=== PATIENT | male | born 1985 | race Caucasian/White ===

== ENCOUNTER 2016-10-08 21:31 | Inpatient (IN) ==
[2016-10-08] MEDS ORDERED: methylPREDNISolone SOD SUC 125 MG/2 ML VIAL IV STA (21:38)
[2016-10-08] MEDS ORDERED: CHARCOAL AQUEOUS 25 GM/120 ML BOTTLE NG STA (21:38)
[2016-10-08] MEDS ORDERED: SODIUM CHLORIDE 0.9% 2,000 ML IV STA (21:38)
[2016-10-08] MEDS ORDERED: AMPICILLIN/SULBACTAM 3,000 MG in SODIUM CHLORIDE 0.9% 100 ML IV STA (21:44)
--- NOTE | 2016-10-08 21:48 | Emergency Department Note ---
Arrival - Arrival Chief Complaint: Overdose Stated Complaint: overdose ED Nursing Triage Note: PT FOUND UNRESPONSIVE PER [facility]. PT ARRIVED AT ROOM 2 INTUBATED PER [facility] Mode of Arrival: Stretcher Limitations: No Limitations Source: Patient Time Seen by Provider: 10/08/16 21:38 - History of Present Illness HPI Narrative: This 31-year-old white male presents intubated post respiratory semi-arrest in the field by EMS where the patient was found in his home on the floor face down respiring about 6 times per minute. At no time per EMS did the patient have any cardiac disturbance. The patient per the family is a well known drug abuser and purportedly the patient took an unknown volume of hydrocodone and Xanax topped off with alcohol sometime between 5 and 6:00 pm, 4-5 hours ago. He was last seen alert around 6:00 but at that time was already staggering and obviously under the influence of drugs. Onset (ago): hour(s) (Patient presents 4 hours post onset of symptoms) Allergies/Adverse Reactions: Allergies Allergy/AdvReac Type Severity Reaction Status Date / Time meloxicam Allergy RASH Verified 03/16/16 07:16 risperidone [From Risperdal] AdvReac Unknown/Unable Verified 03/16/16 07:16 to obtain Home Medications: Home Medications Medication Instructions Recorded Confirmed Type Gabapentin 300 mg PO BID 01/27/16 03/16/16 History Mirtazapine 15 mg PO BEDTIME 01/27/16 03/16/16 History clonazePAM [Clonazepam] 2 mg PO BID 01/27/16 03/16/16 History HYDROcodone/ACETAMIN 7.5-325 1 - 2 tablet PO Q4H #30 tablet 03/17/16 Rx [[place] 7.5-325] Review of System - Review of System ROS unobtainable: due to endotracheal tube, due to mental status Medical,Surgical,& Family Hx - Medical History Psychological: History of: Anxiety Disorders - Surgical History Abdominal Surgeries: Surgical HX of: Appendectomy - Family History Family History: Reports;: Family Diabetes (Father), Family Heart Disease ( Parental G'father), Family Hypertension (Father) - Social History Smoking Status: Current every day smoker Frequency of Alcohol Use: Unknown Type of Drug Use: Prescription Drug Abuse Exam Physical Examination: GENERAL: Well developed, well nourished intubated white male in no acute distress. HEENT: Normocephalic. No trauma. Moist mucous membranes. EOMI. PERRLA. Pinpoint pupils ENT NML ET tube at 21 NECK: Supple. No adenopathy. CARDIAC: Regular. No murmurs. CHEST: Intubated with scattered expiratory rhonchi. ABDOMEN: Soft. Nontender. Active bowel sounds. EXTREMITIES: No trauma. Normal ROM. No pedal edema. SKIN: No diaphoresis. No rash. No obvious track davila. NEURO: Sedated Vital Signs: Vital Signs Pulse Rate 92 H 10/08/16 21:34 Respiratory Rate 16 10/08/16 21:34 Blood Pressure 113/71 10/08/16 21:34 Course - Reevaluation(s) Reevaluation #1: Discussed with family the obvious need for hospitalization - Consultations Consultation #1: Discussed case with the hospitalist service who will admit for further evaluation treatment. Results - Labs CBC & BMP: 10/08/16 21:43 10/08/16 21:43 Labs: I reviewed the laboratory noted the elevated white blood cell count as well as the negative cardiac's. Likewise noted was the UDS which was positive for not only opiates and benzos but likewise crystal meth. - Impressions EKG: Sinus rhythm at 85, normal MS interval and QRS duration. Normal ST segments. Normal EKG. - Diagnostic Findings Procedure: Chest x-ray: image reviewed by me, report reviewed by me ( Cardiomegaly with bilateral basilar platelike atelectasis. ET tube in satisfactory position), CT: image reviewed by me, report reviewed by me (No acute injury but pansinusitis noted with air-fluid levels left maxillary sinus) Disposition Clinical Impression: Polysubstance overdose, Chronic substance abuse, Presumed aspiration pneumonia Case discussed with: patient's family Condition: Critical Time of Disposition: 23:10
[2016-10-08 21:58] LABS: Basophils # 0.1 10*3/uL (0.0-0.2); Basophils % 0.4 % (0.0-0.8); Eosinophils # 0.1 10*3/uL (0.0-0.87); Eosinophils % 0.2 % (0.00-10.9); Hematocrit 50.4 VOL% (42.0-52.0); Hemoglobin 16.9 GM/DL (14.0-18.0); Immature Granulocytes % 0.6 %; Immature Granulocytes Absolute 0.16 #; Lymphocytes # 1.2 10*3/uL (1.4-4.0); Lymphocytes % 4.4 % (21.2-54.2); Mean Corpuscular HGB Conc 33.5 GM/DL (32-36); Mean Corpuscular Hemoglobin 31 PG (27-34); Mean Corpuscular Volume 90.8 FL (87-102); Mean Platelet Volume 9.7 FL (9.6-12.0); Monocytes # 1.2 10*3/uL (0.11-0.8); Monocytes % 4.5 % (1.7-12.7); Neutrophils # 24.7 10*3/uL (1.4-7.4); Neutrophils % 89.9 % (38.7-73.9); Platelet Count 284 T/CUMM (130-400); Red Blood Count 5.55 MC/CUMM (3.8-5.5); Red Cell Distribution Width 13.6 % (9.3-17.3); White Blood Count 27.5 T/CUMM (4-12)
--- NOTE | 2016-10-08 22:05 | CT Report ---
CT of the head without contrast. Indication: Mental status changes. Comparison: December 28, 2010. The ventricles are normal in size and configuration. There is no mass effect, midline shift, or area of hemorrhage. No cortical infarcts are seen. There is thick fluid in the nasopharynx. The there is an air-fluid level in the left maxillary sinus. There is mucosal thickening in both maxillary sinuses, both sphenoid sinuses, both ethmoid sinuses, and both frontoethmoidal recess areas. The calvarium is intact. The mastoid air cells are clear. Impression: Paranasal sinus disease. No acute intracranial process is seen. The CT exam was performed using one or more of the following dose reduction techniques: Automated exposure control, adjustment of the mA and/or kV according to patient size, or use of iterative reconstruction technique. PROCEDURE INTERPRETED AT [facility] DEPARTMENT OF RADIOLOGY Final Report Signed by: Dr. Jesusita Al
[2016-10-08 22:06] LABS: INR 1.1; PT Patient Result 11.5 SECS
[2016-10-08 22:12] LABS: ABG Base Excess -0.9 MMOL/L (-2.5-2.5); ABG HCO3 28.2 MMOL/L (20-26); ABG Oxygen Saturation 98.8 % (95-100); ABG PCO2 64.8 MM HG (35-48); ABG PH 7.256 (7.35-7.45); ABG PO2 159.8 MM HG (80-95); ABG TCO2 30.2 MMOL/L (23-27); Allen Test Positive; Pt O2 Delivery Device Ventilator
[2016-10-08 22:14] LABS: Acetaminophen < 2.0 UG/ML (10-30); Salicylate 3.1 MG/DL (2.8-20)
[2016-10-08 22:17] LABS: Barbiturates Screen,Urine Negative (Negative); Benzodiazepines Screen,Urine Positive (Negative); Cannabinoid Screen,Urine Negative (Negative); Opiate Screen,Urine Positive (Negative); Phencyclidine Screen,Urine Negative (Negative)
[2016-10-08 22:18] LABS: Apearance,Urine Slightly Hazy (Clear); Bilirubin,Urine Negative (Negative); Blood, Urine Negative (Negative); Glucose,Urine (UA) Negative (Negative); Granular Casts,Urine 5 /LPF (0-1); Hyaline Casts,Urine 3 /LPF (0-3); Ketones,Urine Negative (Negative); Mucus,Urine Occasional /LPF (Occasional); Nitrite,Urine Negative (Negative); Protein,Urine 30 MG/DL; RBC,Urine 2 /HPF (0-4); Sperm,Urine Moderate /HPF (Negative); Squamous Epithelial Cell,Urine Occasional /HPF (0-10); Urine Color Yellow (Yellow); Urine Specific Gravity 1.018 (1.001-1.035); Urine Urobilinogen < 2.0 EU/DL (0.2-1.0); WBC,Urine 1 /HPF (0-6)
[2016-10-08] MEDS ORDERED: AMPICILLIN/SULBACTAM 3,000 MG VIAL ONE (22:18)
[2016-10-08] MEDS ORDERED: methylPREDNISolone SOD SUC 125 MG/2 ML VIAL ONE (22:18)
[2016-10-08 22:19] LABS: Troponin I Only < 0.015 NG/ML (0.00-0.045)
--- NOTE | 2016-10-08 22:23 | XRay Report ---
Portable chest. Indication: Drug overdose. Comparison: March 16, 2016. The heart is enlarged, significantly increased from the previous exam. There are patchy areas of platelike atelectasis in each lung base. The pulmonary vasculature is normal. No pneumothorax or pleural effusion. Surgical clips in the right upper quadrant. Distal tip of the nasogastric tube projects at the antrum of the stomach. Distal tip of the endotracheal tube is at T3-T4, well above the pati. Healed rib fractures on the left. Impression: Significant interval increase in heart size. Development of platelike areas of atelectasis in each base. Satisfactory tube placement. PROCEDURE INTERPRETED AT [facility] DEPARTMENT OF RADIOLOGY Final Report Signed by: Dr. Jesusita Al
[2016-10-08 22:27] LABS: Band Neutrophils 2 % (0-10); Lymphocytes 1 % (20-55); Segmented Neutrophils 92 % (50-85); Total Cells Counted 100
[2016-10-08 22:47] LABS: Albumin 4.2 G/DL (3.4-5.0); Bilirubin,Total 0.4 MG/DL (0.2-1.0); Calcium 8.8 MG/DL (8.5-10.1); Osmolality,Calculated 286.8 MOS/KG (273-304); Potassium 3.6 MMOL/L (3.5-5.1); Total Protein 7.7 G/DL (6.4-8.3)
--- NOTE | 2016-10-08 23:38 | Hospitalist History & Physical ---
Assessment and Plan (1) Acute hypercapnic respiratory failure Status: Acute Assessment and plan: Secondary to drug overdose, uncertain whether or not this was a suicide attempt Continue mechanical ventilation through the night, hold sedation and attempt to awaken and extubate in the morning Current Visit: Yes (2) Drug overdose, multiple drugs Status: Acute Current Visit: Yes (3) Drug overdose, multiple drugs Status: Acute Assessment and plan: Agents involved included Xanax, hydrocodone, methamphetamine Caused respiratory failure with bradypnea, hypercapnia Continue IV hydration and mechanical ventilation until substances clear from system Current Visit: Yes Qualifiers: Encounter type: initial encounter (4) Aspiration pneumonitis Status: Acute Assessment and plan: Patient was lying in vomitus when he was found, he has significant leukocytosis , and bibasilar atelectasis on chest x-ray Was given steroids and Unasyn once in the emergency department to cover for possible aspiration pneumonia We will hold further antibiotics at this time unless patient develops fever, failure to wean vent, other indications that this is not a transient aspiration pneumonitis alone Current Visit: Yes (5) Acute encephalopathy Status: Acute Assessment and plan: Secondary to drug overdose with multiple agents, see above Current Visit: Yes History of Present Illness Chief complaint: Drug overdose History of present illness: Mr. Patel is a 31 year old male with history of cholecystectomy, polysubstance abuse that was brought in after family found him down on the floor of their home. The patient was altered secondary to drug overdose and intubated at the time of my exam and he was unable to provide any history. History was taken from discussion with emergency room providers and family including mother present at bedside. Patient has a history of drug dependence problems and was recently in drug rehab. Family believe that he may have been clean for a few months. He was in his usual state of health when seen earlier today although he did not sleep very well the night before. He was reportedly last seen normal at a convenience store around 6:30 PM. He was found unresponsive lying face down in vomit and breathing slowly at around 8 PM. He was intubated in the field. There was Xanax and hydrocodone found near him. Urine drug screen in the emergency department was consistent with the history with the one addition of methamphetamines also noted. He has a history of prior drug overdoses requiring intubation. Per family he does not have a history of suicidal ideation and they do not believe this was intentional self- harm. Home Medications Medication Instructions Recorded Confirmed Type Gabapentin 300 mg PO BID 01/27/16 03/16/16 History Mirtazapine 15 mg PO BEDTIME 01/27/16 03/16/16 History clonazePAM [Clonazepam] 2 mg PO BID 01/27/16 03/16/16 History HYDROcodone/ACETAMIN 7.5-325 1 - 2 tablet PO Q4H #30 tablet 03/17/16 Rx [[place] 7.5-325] Allergies Allergy/AdvReac Type Severity Reaction Status Date / Time meloxicam Allergy RASH Verified 03/16/16 07:16 risperidone [From Risperdal] AdvReac Unknown/Unable Verified 03/16/16 07:16 to obtain Medical,Surgical,& Family Hx - Medical History Psychological: History of: Anxiety Disorders - Surgical History Abdominal Surgeries: Surgical HX of: Cholecystectomy - Family History Family History: Reports;: Family Diabetes (Father), Family Heart Disease ( Parental G'father), Family Hypertension (Father) - Social History Smoking Status: Current every day smoker Frequency of Alcohol Use: Unknown Type of Drug Use: Prescription Drug Abuse ROS unobtainable: due to endotracheal tube, due to mental status Exam - Constitutional General appearance: normal weight, disheveled, other (Young white male, intubated) Exam: - Eye Eye exam: Present: EOMI. Absent: conjunctival injection, scleral icterus Pupils: Present: SRAVANTHI - ENT ENT exam: Present: normal external ear exam, normal oropharynx - Expanded ENT Exam Mouth exam: Present: moist, ET tube in place - Neck Neck exam: Present: normal inspection. Absent: lymphadenopathy, thyromegaly - Respiratory Respiratory exam: Present: clear to auscultation bilaterally. Absent: accessory muscle use, rales, rhonchi, wheezes - Cardiovascular Cardiovascular exam: Present: regular rate and rhythm. Absent: diastolic murmur , systolic murmur - Expanded Cardiovascular Exam Peripheral pulses: 2+: posterior tibialis (L), posterior tibialis (R) - GI/Abdominal GI/Abdominal exam: Present: normal bowel sounds, soft. Absent: distended, hyperactive bowel sounds, hypoactive bowel sounds, organomegaly, tenderness, rebound - Extremities Exam Extremities exam: Absent: edema - Neurological Exam Neurological exam: Present: Unresponsive on the vent - Skin Skin exam: Present: warm, dry. Absent: diaphoretic, rash Results - Labs CBC & BMP: 10/08/16 21:43 10/08/16 21:43 - EKG EKG results: WNL - Diagnostic Findings Procedure: Chest x-ray: report reviewed by me, CT: report reviewed by me
[2016-10-08] MEDS ORDERED: VECURONIUM 10 MG VIAL IV ONE (23:58)
[2016-10-09] MEDS ORDERED: VECURONIUM 10 MG VIAL IV ONE (00:15)
[2016-10-09] MEDS: PROPOFOL 1,000 MG/100 ML BOTTLE IV SCH ×6 (00:45→23:30)
[2016-10-09] MEDS ORDERED: ACETAMINOPHEN 325 MG TABLET PO PRN (00:58)
[2016-10-09] MEDS: DEXTROSE 5% NACL 0.45% 1,000 ML IV SCH ×3 (01:00→16:47)
[2016-10-09 01:38] LABS: ABG Base Excess -2.8 MMOL/L (-2.5-2.5); ABG HCO3 22.2 MMOL/L (20-26); ABG Oxygen Saturation 99.4 % (95-100); ABG PCO2 54.5 MM HG (35-48); ABG PH 7.277 (7.35-7.45); ABG TCO2 21.8 MMOL/L (23-27); Allen Test Positive; Pt O2 Delivery Device Ventilator
[2016-10-09] MEDS ORDERED: fentaNYL INJ 1,250 MCG in SODIUM CHLORIDE 0.9% 225 ML IV SCH (02:00)
[2016-10-09] MEDS: ENOXAPARIN 40 MG/0.4 ML SYRINGE SUBCUT SCH (02:10)
[2016-10-09 05:29] LABS: Basophils % 0.2 % (0.0-0.8); Hematocrit 45.7 VOL% (42.0-52.0); Hemoglobin 15.2 GM/DL (14.0-18.0); Immature Granulocytes % 0.6 %; Immature Granulocytes Absolute 0.07 #; Lymphocytes # 0.5 10*3/uL (1.4-4.0); Lymphocytes % 3.9 % (21.2-54.2); Mean Corpuscular HGB Conc 33.3 GM/DL (32-36); Mean Corpuscular Hemoglobin 30 PG (27-34); Mean Corpuscular Volume 90.1 FL (87-102); Mean Platelet Volume 9.8 FL (9.6-12.0); Monocytes # 0.1 10*3/uL (0.11-0.8); Monocytes % 0.7 % (1.7-12.7); Neutrophils # 10.8 10*3/uL (1.4-7.4); Neutrophils % 94.6 % (38.7-73.9); Platelet Count 266 T/CUMM (130-400); Red Blood Count 5.07 MC/CUMM (3.8-5.5); Red Cell Distribution Width 13.8 % (9.3-17.3); White Blood Count 11.4 T/CUMM (4-12)
[2016-10-09 05:59] LABS: Albumin 3.7 G/DL (3.4-5.0); Bilirubin,Total 0.8 MG/DL (0.2-1.0); Calcium 8.7 MG/DL (8.5-10.1); Osmolality,Calculated 281.4 MOS/KG (273-304); Potassium 4.3 MMOL/L (3.5-5.1); Total Protein 6.7 G/DL (6.4-8.3)
[2016-10-09 06:25] LABS: Band Neutrophils 2 % (0-10); Hypochromasia Slight; Lymphocytes 2 % (20-55); Platelet Estimate Adequate; Segmented Neutrophils 95 % (50-85); Total Cells Counted 100
--- NOTE | 2016-10-09 07:14 | Hospitalist Progress Note ---
Assessment and Plan - Time spent with patient Time spent with patient: Less than 30 minutes (1) Acute hypercapnic respiratory failure Status: Acute Assessment and plan: Patient had acute hypercapnic respiratory failure secondary to multiple drug overdose. He was supported throughout the night he is now awake and alert will attempt to wean and extubate later today. Current Visit: Yes (2) Drug overdose, multiple drugs Status: Acute Assessment and plan: Patient had multiple drug overdose. Once we have successfully extubated willing to discuss circumstances surrounding this and have psychiatric evaluation. Current Visit: Yes (3) Aspiration pneumonitis Status: Acute Current Visit: Yes (4) Acute encephalopathy Status: Acute Assessment and plan: Patient had acute encephalopathy secondary to multiple drug overdose and hypercapnic respiratory failure. This appears to resolve. Will plan to wean and extubate later today and reassess his mental status. Current Visit: Yes Hospitalist: Subjective Interval history: History and physical performed last night of been reviewed patient patient is currently on the vent and his sedation is off. He is awake alert and fairly comfortable. He is currently in restraints. Exam - Constitutional Vitals: Period Temp Pulse Resp BP Sys/Ortega Pulse Ox Last 24 Hr 98.2 F-98.7 F 66-83 15-19 97-120/56-79 96-100 General appearance: no acute distress - Head Head exam: Present: normocephalic, atraumatic - Eye Eye exam: Present: EOMI Pupils: Present: SRAVANTHI - ENT ENT exam: Present: normal exam - Neck Neck exam: Present: normal inspection - Respiratory Respiratory exam: Present: clear to auscultation bilaterally. Absent: rales, rhonchi, wheezes - Cardiovascular Cardiovascular exam: Present: regular rate and rhythm. Absent: systolic murmur , tachycardia - GI/Abdominal GI/Abdominal exam: Present: normal bowel sounds, soft. Absent: mass, tenderness , rebound - Extremities Exam Extremities exam: Absent: calf tenderness, edema - Back Exam Back exam: Present: normal inspection - Neurological Exam Neurological exam: Present: alert, CN II-XII intact. Absent: motor sensory deficit - Skin Skin exam: Present: warm, dry. Absent: rash Results - Labs CBC & BMP: 10/09/16 05:13 10/09/16 05:13 Lab Results: I have reviewed the past 24 hour labs - Diagnostic Findings Procedure: Chest x-ray: report reviewed by me, CT: report reviewed by me
--- NOTE | 2016-10-09 07:46 | EKG Report ---
Stationary ECG Study [facility] ER Test Date: 10/08/2016 10:51:53 PM Pat Name: CARLA SLOAN Department: Room: 127 Gender: M [employer] Hand: YOJANA JOHNSON : 1985 Requested by: Lan Mirza Order Number: [id number] Reading MD: DENISE MOLINA Intervals [place] Rate: 83 P: 64 HI: 153 QRS: 69 QRSD: 106 T: 53 QT: 404 QTc: 444 Interpretive Statements SINUS RHYTHM Electronically Signed On 10-09-16 17:24:28 CDT by DENISE MOLINA [email or web address]
[2016-10-09 08:38] LABS: ABG Base Excess -0.5 MMOL/L (-2.5-2.5); ABG HCO3 26.1 MMOL/L (20-26); ABG Oxygen Saturation 98.4 % (95-100); ABG PCO2 49.7 MM HG (35-48); ABG PH 7.338 (7.35-7.45); ABG PO2 118.5 MM HG (80-95); ABG TCO2 27.6 MMOL/L (23-27)
[2016-10-09] MEDS: GABAPENTIN 300 MG CAPSULE PO SCH ×2 (09:46→20:35)
--- NOTE | 2016-10-09 11:46 | Pulmonology Consult Note ---
History of Present Illness Chief complaint: Ventilator. Aspiration. Pneumonia. Possible ARDS History of present illness: Mr. Patel is a 31 year old white male whom I been asked see in pulmonary consultation for evaluation and treatment. This patient was admitted with a drug overdose. He was found face down in the pool of vomitus.. He was seen today with his mother and another female family member. The remainder of his review of systems is negative. Past history. Disability. Anxiety disorders. Cholecystectomy. History of polysubstance abuse. History of drug dependence problems. Recently has been in drug rehab. Xanax and hydrocodone codon were found near him at his home. Toxicology. His drug screen was positive for opiates and amphetamines and benzodiazepines. Lab. Admit white count was 27,500 with a 9.96. Today's white count is 11,495% segs. H&H is 15.2/45.7. Platelets are 266,000. Electrolytes are normal. Glucoses are in the normal range. Creatinine is dropped from 1.30-0.90 with a BUN of 15. Urine shows no evidence of infection. Liver function tests are normal. INR is 1.1. Chest x-ray. Bibasilar atelectasis. Increased interstitial markings in all 5 lobes of the lung which may represent early adult respiratory distress syndrome. ABGs. Mechanical ventilation. FiO2 50%. PH is 7.338. PCO2 is 49.7. PO2 is 118.5. Bicarb is 26.1. Physical exam. Vital signs. See below. Neurologic. Patient opens his eyes and looks around. It looks like his cranial nerves are intact. There is some movement in all 4 extremities. Face is symmetrical. Eyes are normal. Lips and tongue appear to be normal Neck. Symmetrical. No meningismus. Lymphatics. No submandibular cervical supraclavicular adenopathy. Chest. Clear. Some bibasilar inspiratory squeaks are heard. No way to be sure about chest wall tenderness. Heart. Regular. I cannot hear a gallop or murmur. Abdomen. Only rare bowel sounds Extremities. No clubbing. Nothing to suggest deep venous thrombophlebitis. Skin of the face and hands showed no cancerous infectious lesions. No other areas of skin were examined. The remainder the exam is noncontributory and negative. Impression. 1. Drug overdose 2. Probable bilateral aspiration of gastric contents. 3. Bilateral pneumonia. Certainly related to a chemical injury and suspect bacterial superinfection. #4. Possible adult respiratory distress syndrome. 5. See past history Plan. 1. Mechanical ventilation weaning protocol 2. Physical therapy protocol while on mechanical ventilation. 3. Deep venous thrombophlebitis prevention protocol 4. Proton pump inhibitor protocol 5. Cleocin 6. Levaquin 7. Fiberoptic bronchoscopy which I have discussed with the patient's mother and another female family member 8. Steroids for protection against adult respiratory distress syndrome 9. See orders. Home Medications Medication Instructions Recorded Confirmed Type Gabapentin 300 mg PO BID 01/27/16 03/16/16 History Mirtazapine 15 mg PO BEDTIME 01/27/16 03/16/16 History clonazePAM [Clonazepam] 2 mg PO BID 01/27/16 03/16/16 History HYDROcodone/ACETAMIN 7.5-325 1 - 2 tablet PO Q4H #30 tablet 03/17/16 Rx [[place] 7.5-325] Allergies Allergy/AdvReac Type Severity Reaction Status Date / Time meloxicam Allergy RASH Verified 03/16/16 07:16 risperidone [From Risperdal] AdvReac Unknown/Unable Verified 03/16/16 07:16 to obtain Exam (Pulmonay) H&P - Constitutional Vitals: Period Temp Pulse Resp BP Sys/Ortega Pulse Ox Last 24 Hr 98.2 F-98.7 F 66-86 15-19 97-120/56-79 94-100 Medical,Surgical,& Family Hx - Medical History Psychological: History of: Anxiety Disorders, Depression, Psychiatric/Substance Abuse Tx - Surgical History Abdominal Surgeries: Surgical HX of: Appendectomy, Cholecystectomy - Family History Family History: Reports;: Family Diabetes (Father), Family Heart Disease ( Parental G'father), Family Hypertension (Father) - Social History Smoking Status: Current every day smoker Frequency of Alcohol Use: Unknown Type of Drug Use: Prescription Drug Abuse Results - Labs CBC & BMP: 10/09/16 05:13 10/09/16 05:13
[2016-10-09] MEDS: methylPREDNISolone SOD SUC 125 MG/2 ML VIAL IV SCH ×2 (11:57→20:35)
[2016-10-09] MEDS: PANTOPRAZOLE 40 MG VIAL IV SCH (12:02)
[2016-10-09] MEDS: LEVOFLOXACIN INJ 500 MG in PREMIX 1 EACH IV SCH (12:07)
--- NOTE | 2016-10-09 12:15 | XRay Report ---
Portable chest. Indication: Drug overdose. Comparison: Yesterday's study. The heart is normal in size. There is worsening atelectasis at the lung bases. The pulmonary vasculature is normal. No pneumothorax. No definite pleural effusion. Endotracheal tube and nasogastric tube are in satisfactory position. Impression: Worsening basilar atelectasis. PROCEDURE INTERPRETED AT [facility] DEPARTMENT OF RADIOLOGY Final Report Signed by: Dr. Jesusita Al
[2016-10-09] MEDS: CLINDAMYCIN INJ 300 MG in PREMIX 1 EACH IV SCH ×2 (14:08→18:24)
[2016-10-09] MEDS ORDERED: ONDANSETRON 4 MG/2 ML VIAL ONE (17:40)
[2016-10-09] MEDS: ONDANSETRON 4 MG/2 ML VIAL IV PRN ×2 (17:44→20:57)
[2016-10-09] MEDS ORDERED: BENZOCAINE/BUTAMBEN/TETRACAINE SPRAY 20 GM CAN TOP PRN (21:06)
[2016-10-09] MEDS ORDERED: ONDANSETRON 4 MG/2 ML VIAL IV ONE (21:09)
[2016-10-10] MEDS: CLINDAMYCIN INJ 300 MG in PREMIX 1 EACH IV SCH ×4 (00:10→18:24)
[2016-10-10] MEDS: DEXTROSE 5% NACL 0.45% 1,000 ML IV SCH ×3 (01:27→18:24)
[2016-10-10] MEDS: PROPOFOL 1,000 MG/100 ML BOTTLE IV SCH ×3 (04:31→21:28)
[2016-10-10 04:32] LABS: Pt O2 Delivery Device Ventilator
[2016-10-10 04:33] LABS: ABG HCO3 28.2 MMOL/L (20-26); ABG Oxygen Saturation 98.1 % (95-100); ABG PH 7.415 (7.35-7.45); ABG PO2 101.2 MM HG (80-95); ABG TCO2 29.6 MMOL/L (23-27)
[2016-10-10] MEDS: ENOXAPARIN 40 MG/0.4 ML SYRINGE SUBCUT SCH (04:58)
[2016-10-10] MEDS: methylPREDNISolone SOD SUC 125 MG/2 ML VIAL IV SCH ×3 (05:00→20:26)
--- NOTE | 2016-10-10 07:28 | XRay Report ---
XR chest 1V portable Indication: Intubated. Chest one view: Comparison yesterday. Endotracheal tube, NG tube, borderline cardiomegaly and patchy opacities lung bases are relatively stable. No new densities are seen. Lungs remain hypoinflated. Impression: No change. PROCEDURE INTERPRETED AT [facility] DEPARTMENT OF RADIOLOGY Final Report Signed by: Robby Patel M.D.
[2016-10-10] MEDS: PANTOPRAZOLE 40 MG VIAL IV SCH (09:13)
--- NOTE | 2016-10-10 09:43 | Event Note ---
In hospital diagnostic and therapeutic fiberoptic bronchoscopy. Specimens were sent for Gram stain, bacterial culture, fungal stains and cultures. This is a 31-year-old white male smoker who overdosed on drugs and was found lying face down in a pool of vomitus. He was unresponsive. His chest x-ray showed bibasilar atelectasis as well as some early changes possibly related to adult respiratory distress syndrome. Patient's on mechanical ventilation. He has an ineffective cough he has been suctioned as thoroughly as possible. For these reasons he is evaluated with fiberoptic bronchoscopy. The endotracheal tube is in good position the distal trachea was slightly erythematous the pati was sharp. The right mainstem bronchus was erythematous and slightly friable this extended into the right upper lung which was lavaged and the right lower lung which was lavaged. There were a tremendous amount of retained secretions. I did not see any actual food particles. There were erosions and slight friability without stenosis and all the subsegments of the right lower lung. These lavages were sent for the specimens noted above. Left mainstem bronchus was erythematous and friable and this extended into the left upper lung and left lower lung there were a tremendous amount of retained secretions some of which appear to be pulmonary and some of which appeared to be gastric. The left lower lung was lavaged until clear. These specimens were also sent for the studies are noted above. Patient tolerated procedure well there were no complications. Word is been sent to the family concerning the findings. Impression. 1. Mechanical ventilation 2. Ineffective cough 3. Aspiration of gastric contents with erosions in the mainstem bronchi both upper lungs and especially both lower lungs. 4. History tobacco abuse 5. Bibasilar atelectasis with hypoxemia. Plan. 1. Follow-up chest x-rays 2. Check bronchoscopy specimens.
[2016-10-10] MEDS: GABAPENTIN 300 MG CAPSULE PO SCH ×2 (09:44→20:26)
[2016-10-10 09:50] LABS: Hematocrit 45.4 VOL% (42.0-52.0); Hemoglobin 15.2 GM/DL (14.0-18.0); Immature Granulocytes % 0.6 %; Immature Granulocytes Absolute 0.08 #; Lymphocytes # 0.7 10*3/uL (1.4-4.0); Lymphocytes % 4.8 % (21.2-54.2); Mean Corpuscular HGB Conc 33.5 GM/DL (32-36); Mean Corpuscular Hemoglobin 31 PG (27-34); Mean Corpuscular Volume 91.3 FL (87-102); Mean Platelet Volume 10.1 FL (9.6-12.0); Monocytes # 0.4 10*3/uL (0.11-0.8); Monocytes % 3.1 % (1.7-12.7); Neutrophils # 12.9 10*3/uL (1.4-7.4); Neutrophils % 91.5 % (38.7-73.9); Platelet Count 272 T/CUMM (130-400); Red Blood Count 4.97 MC/CUMM (3.8-5.5); Red Cell Distribution Width 14.2 % (9.3-17.3); White Blood Count 14.1 T/CUMM (4-12)
[2016-10-10 09:54] LABS: PT Patient Result 10.9 SECS
[2016-10-10 10:30] LABS: Hypochromasia 1+; Lymphocytes 7 % (20-55); Platelet Estimate Adequate; Segmented Neutrophils 92 % (50-85); Total Cells Counted 100
[2016-10-10 10:30] LABS: ABG Base Excess 2.9 MMOL/L (-2.5-2.5); ABG HCO3 26.9 MMOL/L (20-26); ABG PCO2 50.7 MM HG (35-48); ABG PH 7.372 (7.35-7.45); ABG PO2 70.9 MM HG (80-95); ABG TCO2 25.1 MMOL/L (23-27)
--- NOTE | 2016-10-10 11:55 | Pulmonology Progress Note ---
<Bert Romero - Last Filed: 10/10/16 11:55> Exam (Progress Note) - Constitutional Vitals: Period Temp Pulse Resp BP Sys/Ortega Pulse Ox Last 24 Hr 98.5 F-99.0 F 62-85 93-112/49-78 64-97 Results - Labs CBC & BMP: 10/10/16 09:38 10/09/16 05:13 <Augie Adams - Last Filed: 10/10/16 17:29> Pulmonary - PN: Subj Interval history: This 31-year-old white male whom I saw in pulmonary consultation 10/09/2016. My impressions were. 1. Drug overdose 2. Probable bilateral aspiration of gastric contents. 3. Bilateral pneumonia. Certainly related to a chemical injury and suspect bacterial superinfection. #4. Possible adult respiratory distress syndrome. 5. See past history 10/10/2016. This patient's chest x-ray is better but still shows bibasilar atelectasis. His oxygen has improved some. I evaluated patient with fiberoptic bronchoscopy and he had retained secretions secondary to his COPD and he had some retained gastric contents. His endobronchial injury was not particularly severe and there were scattered areas of erosive friable bronchitis but no significant stenosis. See bronchoscopy report. As a consequence to the findings I placed the patient on the T-tube he did very well and later on he was extubated with no problems. Labs been reviewed. Bronchoscopy specimens were sent for cultures these are pending. Findings and plan were discussed with the patient some mother and with his father. Physical exam Vital signs. See below. Psychiatric. Oriented 3 able to cooperate Neurologic. Cranial nerves are intact. Long track motor functions intact. Neck. No meningismus Lymphatics. No submandibular cervical supraclavicular or epitrochlear adenopathy Chest. Large airway congestion. Bibasilar inspiratory squeaks. Heart. Regular. No gallop Abdomen a few bowel sounds Extremities nothing to suggest deep venous thrombophlebitis The remainder the physical exam was noncontributory Plan. 1. Mechanical ventilation weaning protocol. Extubated 10/10/2016 2. Physical therapy protocol while on mechanical ventilation. 3. Deep venous thrombophlebitis prevention protocol 4. Proton pump inhibitor protocol 5. Cleocin 6. Levaquin 7. Fiberoptic bronchoscopy, 10/10/2016, see report. 8. Steroids for protection against adult respiratory distress syndrome 9. See orders. 10. 327 and 17. Follow-up chest x-ray and ABGs. Exam (Progress Note) - Constitutional Vitals: Period Temp Pulse Resp BP Sys/Ortega Pulse Ox Last 24 Hr 97.7 F-99.0 F 62-88 13-27 93-131/49-78 64-99 Results - Labs CBC & BMP: 10/10/16 09:38 10/09/16 05:13
[2016-10-10] MEDS: ALBUTEROL/IPRATROPIUM 3 ML NEB RESP TX SCH ×2 (12:10→19:05)
[2016-10-10] MEDS: LEVOFLOXACIN INJ 500 MG in PREMIX 1 EACH IV SCH (12:15)
[2016-10-10 12:21] LABS: Allen Test Positive; Pt O2 Delivery Device Venturi Mask
[2016-10-10 12:22] LABS: ABG Base Excess 3.4 MMOL/L (-2.5-2.5); ABG HCO3 27.3 MMOL/L (20-26); ABG PH 7.413 (7.35-7.45); ABG PO2 79.8 MM HG (80-95); ABG TCO2 24.2 MMOL/L (23-27)
--- NOTE | 2016-10-10 16:02 | Hospitalist Progress Note ---
Assessment and Plan (1) Acute encephalopathy Status: Acute Assessment and plan: Should hopefully resolve after he is extubated now that the drugs are out of his system. Current Visit: Yes (2) Acute hypercapnic respiratory failure Status: Acute Assessment and plan: Resolved with intubation. Current Visit: Yes (3) Aspiration pneumonitis Status: Acute Assessment and plan: Status post bronched today by Dr. Adams. Patient has been extubated today. Continue clindamycin and Levaquin IV Current Visit: Yes (4) Drug overdose, multiple drugs Status: Acute Assessment and plan: Patient had overdosed. He has had multiple rehabs. He was positive for opiates methamphetamines and benzos. We are asking [facility] to evaluate him. 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 Renewed his restraints. He still got rhonchi in the right side of his lungs. He was bronched today by Dr. Adams. Exam - Constitutional Vitals: Period Temp Pulse Resp BP Sys/Ortega Pulse Ox Last 24 Hr 97.7 F-99.0 F 62-88 13- 93-131/49-78 64-99 Exam: Heart Rate-[RRR] Lungs-[right-sided rhonchi] GI-[+bs soft, NT] Ext-[no edema] Neuro [Motor 5/5], [agitated] psych [agitated mood and affect] General [no acute distress] Results - Labs CBC & BMP: 10/10/16 09:38 10/09/16 05:13 Lab Results: I have reviewed the past 24 hour labs - Diagnostic Findings Procedure: Chest x-ray: report reviewed by me (bilateral opacities )
[2016-10-11] MEDS: CLINDAMYCIN INJ 300 MG in PREMIX 1 EACH IV SCH ×2 (00:18→05:13)
[2016-10-11] MEDS: ALBUTEROL/IPRATROPIUM 3 ML NEB RESP TX SCH ×2 (00:30→07:28)
[2016-10-11] MEDS: DEXTROSE 5% NACL 0.45% 1,000 ML IV SCH (02:26)
[2016-10-11 04:04] LABS: ABG Base Excess 3.8 MMOL/L (-2.5-2.5); ABG HCO3 28.3 MMOL/L (20-26); ABG PCO2 42.1 MM HG (35-48); ABG PH 7.446 (7.35-7.45); ABG PO2 77.5 MM HG (80-95); ABG TCO2 29.6 MMOL/L (23-27); Allen Test Positive; Pt O2 Delivery Device Room Air
[2016-10-11] MEDS: ENOXAPARIN 40 MG/0.4 ML SYRINGE SUBCUT SCH (05:12)
[2016-10-11] MEDS: methylPREDNISolone SOD SUC 125 MG/2 ML VIAL IV SCH (05:13)
--- NOTE | 2016-10-11 07:29 | XRay Report ---
XR chest 1V Indication: Extubated. Chest one view: Since yesterday, endotracheal tube and nasogastric tube have been removed. There is been progressive bibasilar atelectasis developing with hypoinflation of the lungs. Heart size remains minimally enlarged as well. Impression: Extubation and NG tube removal. Progressive pulmonary hypoinflation with atelectasis. PROCEDURE INTERPRETED AT [facility] DEPARTMENT OF RADIOLOGY Final Report Signed by: Robby Patel M.D.
[2016-10-11] MEDS: PANTOPRAZOLE 40 MG VIAL IV SCH (08:40)
[2016-10-11] MEDS: GABAPENTIN 300 MG CAPSULE PO SCH (08:40)
--- NOTE | 2016-10-11 10:49 | Discharge Summary ---
Diagnosis - Discharge Diagnosis (1) Acute encephalopathy Status: Acute (2) Acute hypercapnic respiratory failure Status: Acute (3) Aspiration pneumonitis Status: Acute (4) Drug overdose, multiple drugs Status: Acute Discharge Plan - Discharge Data Disposition: Disch To Home/Self Care Condition at Discharge: Stable Discharge Diet: regular diet Activity: resume usual activities as tolerated Hygiene: no restrictions Weight Bearing at Discharge: full weight bearing - Discharge Medications New Levofloxacin Tab [Levaquin Tab] 750 mg PO DAILY #7 tablet Continue Mirtazapine 15 mg PO BEDTIME Discontinued Gabapentin 300 mg PO BID clonazePAM [Clonazepam] 2 mg PO BID HYDROcodone/ACETAMIN 7.5-325 [Paramus 7.5-325] 1 - 2 tablet PO Q4H #30 tablet - Follow Up or Referral Follow Up: Augie Adams MD [Physician] - 1 Week - Forms/Instructions Exam - Constitutional Vitals: Period Temp Pulse Resp BP Sys/Ortega Pulse Ox Last 24 Hr 97.7 F-99.3 F 47-93 12-27 101-144/45-98 91-99 Discharge Results Procedures and tests throughout hospitalization: Pending Orders 10/10/16 Bronchoalveolar Lavage C & GS Stat Fungal Culture w/ Prep Stat Labs on day of discharge: Labs from last 24 hours 10/11/16 10/10/16 04:00 12:15 ABG pH 7.446 7.413 ABG pCO2 42.1 45.0 ABG pO2 77.5 L 79.8 L ABG HCO3 28.3 H 27.3 H ABG Total CO2 29.6 H 24.2 ABG O2 Saturation 96.0 97.0 ABG Base Excess 3.8 H 3.4 H FiO2 21.00 40.00 Preliminary micro results at discharge 10/10/16 Unknown Bronchoalveolar Lavage Culture - Preliminary Bronchial Tho Lavage Gram Negative Rods Gram Negative Rods#2 Yeast DS: Provider Date of admission: 10/08/16 23:01 Primary care physician: . No PCP Attending physician on admission: Pipe Newmna Consults: 10/09/16 00:30 Consult to Dietitian [CONS] Routine Reason for Dietitian: Dietary Consult 10/09/16 09:27 Consult to Physician [CONS] Routine Comment: Consulting Provider: Augie Adams 10/10/16 08:50 Consult to Case Mgmt/Social Srvs [CONS] Routine Reason for Case Mgmt/Social Srvs: Psychiatric Management Discharging clinician: Samira Carlin MD
--- NOTE | 2016-10-11 11:01 | Pulmonology Progress Note ---
Pulmonary - PN: Subj Interval history: This 31-year-old white male whom I saw in pulmonary consultation 10/09/2016. My impressions were. 1. Drug overdose 2. Probable bilateral aspiration of gastric contents. 3. Bilateral pneumonia. Certainly related to a chemical injury and suspect bacterial superinfection. #4. Possible adult respiratory distress syndrome. 5. See past history 10/10/2016. This patient's chest x-ray is better but still shows bibasilar atelectasis. His oxygen has improved some. I evaluated patient with fiberoptic bronchoscopy and he had retained secretions secondary to his COPD and he had some retained gastric contents. His endobronchial injury was not particularly severe and there were scattered areas of erosive friable bronchitis but no significant stenosis. See bronchoscopy report. As a consequence to the findings I placed the patient on the T-tube he did very well and later on he was extubated with no problems. Labs been reviewed. Bronchoscopy specimens were sent for cultures these are pending. Findings and plan were discussed with the patient some mother and with his father. 10/11/2016. This patient was extubated on 09/12/2016. Today's chest x-ray shows bibasilar atelectasis. There is some scattered increased interstitial markings in all 5 lobes. ABGs on room air show a pH of 7.446, PCO2 42, PO2 77.5 and a bicarb of 28.3. I originally feared that this patient would develop adult respiratory distress syndrome but he has not. I am going to decrease his Solu- Medrol to 40 mg IV push twice daily and when he goes home I would suggest that we send him home on prednisone 20 daily for 7 days 10 daily for 7 days and 10 every other day for 7 doses. Bronchoscopy specimens showed no organisms but his bronchoscopy lavages are growing 2 different gross of gram-negative rods and also yeast. We should continue him on his antibiotics and wait for IDs and sensitivities. We are dealing with an aspiration pneumonitis and bacterial pneumonitis. Physical exam Vital signs. See below. Psychiatric. Oriented 3 able to cooperate Neurologic. Cranial nerves are intact. Long track motor functions intact. Neck. No meningismus Lymphatics. No submandibular cervical supraclavicular or epitrochlear adenopathy Chest. Large airway congestion. Heart. Regular. No gallop Abdomen a few bowel sounds Extremities nothing to suggest deep venous thrombophlebitis The remainder the physical exam was noncontributory Plan. 1. Mechanical ventilation weaning protocol. Extubated 10/10/2016 2. Physical therapy protocol while on mechanical ventilation. 3. Deep venous thrombophlebitis prevention protocol 4. Proton pump inhibitor protocol 5. Cleocin 6. Levaquin 7. Fiberoptic bronchoscopy, 10/10/2016, see report. 8. Steroids for protection against adult respiratory distress syndrome 9. See orders. 10. 327 and 17. Follow-up chest x-ray and ABGs. 11. 10/11/2016. See today's note above. Exam (Progress Note) - Constitutional Vitals: Period Temp Pulse Resp BP Sys/Ortega Pulse Ox Last 24 Hr 97.7 F-99.3 F 47-93 12-27 101-144/45-98 91-99 Results - Labs CBC & BMP: 10/10/16 09:38 10/09/16 05:13 Specialty Discharge - Follow Up or Referrals Follow up with: Augie Adams MD [Physician] - 1 Week
[2016-10-11 12:07] VITALS: BP 146/78
[2016-10-11] MEDS ORDERED: methylPREDNISolone SOD SUC 125 MG/2 ML VIAL IV SCH (17:00)
== END 2016-10-11 12:30 | disposition home or self-care (01) | DRG 812 ==
LOC: EDBD → EDUNIT# → N.ED 21:31 → SUATTDRO 23:01 → N.EDINP 23:01 → N.CC 23:33
PROVIDERS: ADMIT Hospitalist; ATTEND Internal Medicine

== ENCOUNTER 2017-02-02 13:53 | Inpatient (IN) ==
[2017-02-02] MEDS ORDERED: SODIUM CHLORIDE 0.9% 1,000 ML IV STA (14:27)
[2017-02-02] MEDS ORDERED: IBUPROFEN 800 MG TABLET PO STA (14:30)
[2017-02-02] MEDS ORDERED: PROMETHAZINE 25 MG/1 ML VIAL IM STA (14:34)
[2017-02-02] MEDS ORDERED: cefTRIAXone 1,000 MG in SODIUM CHLORIDE 0.9% 100 ML IV STA (14:35)
[2017-02-02] MEDS ORDERED: IBUPROFEN 400 MG TABLET ONE (14:44)
[2017-02-02] MEDS ORDERED: PROMETHAZINE 25 MG/1 ML VIAL ONE (14:44)
[2017-02-02] MEDS ORDERED: cefTRIAXone 1,000 MG VIAL ONE (14:44)
--- NOTE | 2017-02-02 14:45 | Emergency Department Note ---
Arrival - Arrival Chief Complaint: Fever Stated Complaint: 104 fever,chest pain,migraine,sob ED Nursing Triage Note: Pt c/o BLANTON, dizziness, fever (104), not eating or drinking, chills, and cough onset 1 wk ago. Mode of Arrival: Ambulatory Limitations: No Limitations Source: Patient Time Seen by Provider: 02/02/17 14:16 - History of Present Illness HPI Narrative: The patient complains of a headache for the past 5 days. He has also had cough , sore throat, fever, chills and shortness of breath. He has a history of frequent headaches but the current one is worse than normal. He reports decreased intake and has been working in the heat. He was seen at [facility] today and noted to have a fever of 104. A chest x-ray was done and showed bilateral infiltrates and he was referred here. Strep test was also done and was negative. It is not clear what blood work was done. Allergies/Adverse Reactions: Allergies Allergy/AdvReac Type Severity Reaction Status Date / Time meloxicam Allergy RASH Verified 03/16/16 07:16 risperidone [From Risperdal] AdvReac Unknown/Unable Verified 03/16/16 07:16 to obtain Home Medications: Home Medications Medication Instructions Recorded Confirmed Type Mirtazapine 15 mg PO BEDTIME 01/27/16 03/16/16 History Levofloxacin Tab [Levaquin Tab] 750 mg PO DAILY #7 tablet 10/11/16 Rx ARIPiprazole [Abilify] 5 mg PO BEDTIME 12/29/16 12/29/16 History Calcium Carbonate/Vitamin D3 1 each PO QAM 12/29/16 12/29/16 History [Calcium 600-Vit D3 400 Tablet] Folic Acid Tab 1 mg PO QAM 12/29/16 12/29/16 History Gabapentin Cap/Tab [Neurontin 300 mg PO BID 12/29/16 12/29/16 History Cap/Tab] Ketorolac Tab [Toradol Tab] 10 mg PO Q6H PRN #20 tablet 12/29/16 Rx Methocarbamol Tab [Robaxin Tab] 1,000 mg PO BID #10 tablet 12/29/16 Rx Review of System - Review of System Constitutional: Present: chills, fever, weakness, other (Fatigue) Eyes: Absent: vision change Head/Ears/Nose/Throat: Present: sore throat. Absent: earache, nasal drainage Respiratory: Present: cough (Occasionally productive of green sputum), other ( Dyspnea). Absent: respiratory distress, wheezing Cardiovascular: Present: chest pain (Tightness), dyspnea on exertion. Absent: palpitations, orthopnea, edema, syncope Gastrointestinal: Present: nausea. Absent: abdominal pain, vomiting Skin: Present: other (Laceration to right index finger this a.m.) Neurological: Present: headache, vertigo. Absent: numbness, paresthesias, confusion Psychiatric: Present: anxiety Endocrine: Present: fatigue Medical,Surgical,& Family Hx - Medical History Psychological: History of: Anxiety Disorders, Behavior Problems (Tourette's syndrome), Depression, Psychiatric/Substance Abuse Tx Neurology: History of: Migraine, Peripheral Neuropathy - Surgical History Abdominal Surgeries: Surgical HX of: Appendectomy, Cholecystectomy - Family History Family History: Reports;: Family Diabetes (Father), Family Heart Disease ( Parental G'father), Family Hypertension (Father) - Social History Smoking Status: Current every day smoker Exam Physical Examination: GENERAL: Alert. No acute distress. HEENT: Normocephalic and atraumatic. There is no temporal artery tenderness or pain on percussion of sinuses. No TMJ tenderness or click. PERRL, EOM intact. Conjunctivae injected bilaterally. There is no nasal discharge. There is pharyngeal erythema but no exudate. NECK: Normal inspection. Supple. No lymphadenopathy or meningismus. Full range of motion without evidence of pain. LUNGS: No respiratory distress. Good air movement. Mild rales bilaterally. HEART: Regular rate and rhythm. Abdomen: Soft, nondistended, nontender with normal bowel sounds. SKIN: Color normal. Warm and dry. EXTREMITIES: Nontender. Normal range of motion. There is a small laceration of the right index finger that has been glued and has Steri-Strips. NEUROLOGICAL/PSYCHIATRIC: Alert and oriented -4. Normal speech. Normal mood and affect. Cranial nerves II through X are intact. Sensory and motor exams are normal. Reflexes are normal. There is no pronator drift. Finger to nose is normal bilaterally. Vital Signs: Vital Signs Temperature 101.2 F H 02/02/17 14:16 Pulse Rate 112 H 02/02/17 14:16 Respiratory Rate 20 02/02/17 14:16 Blood Pressure 126/81 02/02/17 14:16 O2 Sat by Pulse Oximetry 95 02/02/17 14:00 Course - Reevaluation(s) Reevaluation #1: I have discussed the patient with the hospitalist service who will see him and admit. Urinalysis is still pending at this point. Time: 16:25 Results - Labs CBC & BMP: 02/02/17 14:31 02/02/17 14:31 Lab Results: I have reviewed the patients labs Labs: Microbiology 02/02/17 14:44 Nasal Aspirate Influenza Types A,B Antigen (CHITRA) - Final Negative for Influenza A Ag Negative for Influenza B Ag Laboratory Tests 02/02/17 02/02/17 02/02/17 14:30 14:31 14:31 Lactic Acid 1.3 Total Bilirubin 0.50 AST 31 ALT 31 Total Creatine Kinase 495 H CK-MB (CK-2) < 1.0 Troponin I < 0.015 Free T4 1.06 TSH 3rd Generation 0.281 L - Impressions Chest x-ray shows bilateral infiltrates and discoid atelectasis. Disposition Clinical Impression: Pneumonia Case discussed with: patient, patient's family Disposition: Still a Patient Condition: Stable Time of Disposition: 16:25
[2017-02-02 14:54] LABS: Basophils # 0.1 10*3/uL (0.0-0.2); Basophils % 0.6 % (0.0-0.8); Eosinophils # 0.1 10*3/uL (0.0-0.87); Hematocrit 45.7 VOL% (42.0-52.0); Hemoglobin 16.3 GM/DL (14.0-18.0); Immature Granulocytes % 0.5 %; Immature Granulocytes Absolute 0.07 #; Lymphocytes % 14.5 % (21.2-54.2); Mean Corpuscular HGB Conc 35.7 GM/DL (32-36); Mean Corpuscular Hemoglobin 31 PG (27-34); Mean Corpuscular Volume 88.1 FL (87-102); Mean Platelet Volume 9.9 FL (9.6-12.0); Monocytes # 0.8 10*3/uL (0.11-0.8); Monocytes % 6.1 % (1.7-12.7); Neutrophils # 10.5 10*3/uL (1.4-7.4); Neutrophils % 77.3 % (38.7-73.9); Platelet Count 264 T/CUMM (130-400); Red Blood Count 5.19 MC/CUMM (3.8-5.5); Red Cell Distribution Width 13.6 % (9.3-17.3); White Blood Count 13.6 T/CUMM (4-12)
--- NOTE | 2017-02-02 15:02 | CT Report ---
CT of the head without contrast. Indication: The ventricles are normal in size and configuration. There is a partial empty sella. There is no mass effect, midline shift, or area of hemorrhage. No ischemic lesions are seen. The calvarium is intact. There is mucosal thickening present within the ethmoid sinuses and maxillary sinuses. Impression: No acute intracranial process. Moderate paranasal sinus disease.. The CT exam was performed using one or more of the following dose reduction techniques: Automated exposure control, adjustment of the mA and/or kV according to patient size, or use of iterative reconstruction technique. PROCEDURE INTERPRETED AT [facility] DEPARTMENT OF RADIOLOGY Final Report Signed by: Dr. Jesusita Al
[2017-02-02 15:21] LABS: Lactic Acid 1.3 MMOL/L (0.4-2.0)
[2017-02-02 15:24] LABS: Albumin 3.7 G/DL (3.4-5.0); Bilirubin,Total 0.5 MG/DL (0.2-1.0); Osmolality,Calculated 264.2 MOS/KG (273-304); Potassium 3.7 MMOL/L (3.5-5.1); Total Protein 7.4 G/DL (6.4-8.3)
[2017-02-02 15:27] LABS: Free T4 (Free Thyroxine) 1.06 NG/DL (0.76-1.46); Thyroid Stimulating Hormone 0.281 uIU/ml (0.358-3.74)
[2017-02-02 15:53] LABS: Troponin I Only < 0.015 NG/ML (0.00-0.045)
[2017-02-02 16:22] LABS: Apearance,Urine CLEAR (Clear); Bilirubin,Urine Negative (Negative); Blood, Urine Negative (Negative); Glucose,Urine (UA) Negative (Negative); Ketones,Urine Negative (Negative); Nitrite,Urine Negative (Negative); Protein,Urine Negative; RBC,Urine <1 /HPF (0-4); Squamous Epithelial Cell,Urine Occasional /HPF (0-10); Urine Color Colorless (Yellow); Urine Urobilinogen < 2.0 EU/DL (0.2-1.0)
[2017-02-02 17:41] LABS: Barbiturates Screen,Urine Negative (Negative); Benzodiazepines Screen,Urine Negative (Negative); Cannabinoid Screen,Urine Negative (Negative); Opiate Screen,Urine Negative (Negative); Phencyclidine Screen,Urine Negative (Negative)
--- NOTE | 2017-02-02 17:45 | XRay Report ---
Portable chest. Indication: Pneumonia. Comparison: Exam from earlier today. The heart is enlarged and appears increased in size compared to the exam from earlier today. The pulmonary vasculature is prominent. Linear areas of atelectasis in the right midlung field are stable. Worsening infiltrate is seen in the left midlung field. Persistent left midlung atelectasis as well. No pneumothorax. No pleural effusion. Impression: Interval increase in heart size and development of venous congestion. Stable bilateral atelectasis. Worsening infiltrate in the left midlung field. PROCEDURE INTERPRETED AT [facility] DEPARTMENT OF RADIOLOGY Final Report Signed by: Dr. Jesusita Al
--- NOTE | 2017-02-02 17:52 | Hospitalist History & Physical ---
<Bc Espitia - Last Filed: 02/02/17 18:54> Assessment and Plan (1) Pneumonia Status: Acute Assessment and plan: Admit as inpatient. Obtain chest xray here. Blood culture stat. IV antibiotics ( Zosyn and Rocephin). IVF hydration. Breathing treatment. Monitor O2 sats. Current Visit: Yes (2) Leukocytosis Status: Acute Assessment and plan: Secondary to pneumonia. Recheck CBC in am. Current Visit: Yes History of Present Illness Chief complaint: pneumonia History of present illness: Mr. Patel is a 31 year old white male with a history of psoriasis syndrome, his substance abuse, depression, anxiety, migraine, peripheral neuropathy, appendectomy, and cholecystectomy presented to the ED as a transfer from the [facility] for evaluation of a fever of 104. Patient also complained of cough, fever, chills, night sweats, and sore throat. Chest x-ray was completed at outside facility showed bilateral infiltrates. On examination in the ED, patient reports feeling ill for the last 2-3 days. He also reported a headache that he is a for last 5 days. He states that he take Tylenol for the symptoms received no relief. Pt. reported to the [facility] today and was subsquently transferred to our facility. CBC performed in ER revealed WBC of 13. Patient will be admitted to the hospitalist service for further evaluation and treatment. Home Medications Medication Instructions Recorded Confirmed Type Mirtazapine 15 mg PO BEDTIME 01/27/16 03/16/16 History Levofloxacin Tab [Levaquin Tab] 750 mg PO DAILY #7 tablet 10/11/16 Rx ARIPiprazole [Abilify] 5 mg PO BEDTIME 12/29/16 12/29/16 History Calcium Carbonate/Vitamin D3 1 each PO QAM 12/29/16 12/29/16 History [Calcium 600-Vit D3 400 Tablet] Folic Acid Tab 1 mg PO QAM 12/29/16 12/29/16 History Gabapentin Cap/Tab [Neurontin 300 mg PO BID 12/29/16 12/29/16 History Cap/Tab] Ketorolac Tab [Toradol Tab] 10 mg PO Q6H PRN #20 tablet 12/29/16 Rx Methocarbamol Tab [Robaxin Tab] 1,000 mg PO BID #10 tablet 12/29/16 Rx Allergies Allergy/AdvReac Type Severity Reaction Status Date / Time meloxicam Allergy RASH Verified 03/16/16 07:16 risperidone [From Risperdal] AdvReac Unknown/Unable Verified 03/16/16 07:16 to obtain Medical,Surgical,& Family Hx - Medical History Psychological: History of: Anxiety Disorders, Behavior Problems (Tourette's syndrome), Depression, Psychiatric/Substance Abuse Tx Neurology: History of: Migraine, Peripheral Neuropathy - Surgical History Abdominal Surgeries: Surgical HX of: Appendectomy, Cholecystectomy - Family History Family History: Reports;: Family Diabetes (Father), Family Heart Disease ( Parental G'father), Family Hypertension (Father) - Social History Smoking Status: Current every day smoker Marital Status: Single Lives With:: Alone Functional capacity: independent ambulation - Constitutional Constitutional: Present: chills, fever(s), night sweats - EENT Eyes: Absent: requires corrective lense Ears: Absent: decreased hearing Nose, mouth and throat: Present: headache(s), sore throat - Cardiovascular Cardiovascular: Absent: chest pain at rest, edema - Gastrointestinal Gastrointestinal: Present: nausea. Absent: abdominal pain, vomiting - Genitourinary Genitourinary: Absent: difficulty urinating - Neurological Neurological: Absent: abnormal speech, confusion - Psychiatric Psychiatric: Absent: anxiety Exam - Constitutional Vitals: Period Temp Pulse Resp BP Sys/Ortega Pulse Ox Last 24 Hr 101.2 F-101.2 F 80-112 20-22 126-147/81-88 95-98 General appearance: normal weight, no acute distress - Head Head exam: Present: normal inspection, normocephalic - Eye Eye exam: Present: EOMI. Absent: scleral icterus Pupils: Present: SRAVANTHI. Absent: fixed - ENT ENT exam: Present: normal exam - Neck Neck exam: Present: normal inspection - Respiratory Respiratory exam: Present: clear to auscultation bilaterally. Absent: wheezes - Cardiovascular Cardiovascular exam: Present: regular rate and rhythm - GI/Abdominal GI/Abdominal exam: Present: normal bowel sounds, soft. Absent: tenderness - Extremities Exam Extremities exam: Present: normal inspection. Absent: edema - Neurological Exam Neurological exam: Present: alert, oriented X3 - Psychiatric Psychiatric exam: Present: normal affect, normal mood - Skin Skin exam: Present: normal color, warm, dry Results - Labs CBC & BMP: 02/02/17 14:31 02/02/17 14:31 Lab Results: I have reviewed the past 24 hour labs <Raymon Khan - Last Filed: 02/02/17 19:05> Assessment and Plan - Time spent with patient Time spent with patient: Less than 30 minutes (I, Raymon Khan MD, personally saw this patient and agreee with the assessment and plan.) History of Present Illness History of present illness: Mr. Patel is a 31 year old male Exam - Constitutional Vitals: Period Temp Pulse Resp BP Sys/Ortega Pulse Ox Last 24 Hr 101.2 F-101.2 F 80-112 20-22 126-147/81-88 95-98 Results - Labs CBC & BMP: 02/02/17 14:31 02/02/17 14:31
[2017-02-02] MEDS ORDERED: NICOTINE 21 MG/24 HR PATCH TRANSDERM PRN (19:21)
[2017-02-02] MEDS ORDERED: ACETAMINOPHEN 325 MG TABLET PO PRN (19:21)
[2017-02-02] MEDS ORDERED: ONDANSETRON 4 MG/2 ML VIAL IV PRN (19:21)
[2017-02-02] MEDS ORDERED: ONDANSETRON 4 MG/2 ML VIAL IM PRN (19:21)
[2017-02-02] MEDS ORDERED: PROMETHAZINE INJ 12.5 MG in SODIUM CHLORIDE 0.9% 50 ML IV PRN (19:21)
[2017-02-02] MEDS ORDERED: ALBUTEROL 2.5 MG/3 ML NEB RESP TX PRN (19:21)
[2017-02-02] MEDS ORDERED: FUROSEMIDE 40 MG/4 ML VIAL IV ONE (19:21)
[2017-02-02] MEDS: SODIUM CHLORIDE 0.9% 1,000 ML IV SCH (20:08)
[2017-02-02] MEDS: DOXYCYCLINE HYCLATE INJ 100 MG in SODIUM CHLORIDE 0.9% 100 ML IV SCH (20:44)
[2017-02-02] MEDS: ALBUTEROL/IPRATROPIUM 3 ML NEB RESP TX SCH ×2 (21:32→23:57)
[2017-02-03] MEDS: ALBUTEROL/IPRATROPIUM 3 ML NEB RESP TX SCH ×5 (03:08→19:22)
[2017-02-03 04:47] LABS: Basophils # 0.1 10*3/uL (0.0-0.2); Basophils % 1.3 % (0.0-0.8); Eosinophils # 0.3 10*3/uL (0.0-0.87); Eosinophils % 5.3 % (0.00-10.9); Hematocrit 44.7 VOL% (42.0-52.0); Hemoglobin 15.3 GM/DL (14.0-18.0); Immature Granulocytes % 0.4 %; Immature Granulocytes Absolute 0.02 #; Lymphocytes # 1.9 10*3/uL (1.4-4.0); Lymphocytes % 34.4 % (21.2-54.2); Mean Corpuscular HGB Conc 34.2 GM/DL (32-36); Mean Corpuscular Hemoglobin 31 PG (27-34); Mean Corpuscular Volume 90.5 FL (87-102); Mean Platelet Volume 10.1 FL (9.6-12.0); Monocytes # 0.6 10*3/uL (0.11-0.8); Neutrophils # 2.6 10*3/uL (1.4-7.4); Neutrophils % 47.6 % (38.7-73.9); Platelet Count 256 T/CUMM (130-400); Red Blood Count 4.94 MC/CUMM (3.8-5.5); White Blood Count 5.4 T/CUMM (4-12)
[2017-02-03 05:34] LABS: Calcium 8.4 MG/DL (8.5-10.1); Magnesium 2.4 MG/DL (1.8-2.4); Osmolality,Calculated 282.1 MOS/KG (273-304); Potassium 3.8 MMOL/L (3.5-5.1); Risk Ratio 5.93; Thyroid Stimulating Hormone 0.349 uIU/ml (0.358-3.74); VLDL CHOLESTEROL 19.6 MG/DL
[2017-02-03] MEDS: DOXYCYCLINE HYCLATE INJ 100 MG in SODIUM CHLORIDE 0.9% 100 ML IV SCH ×2 (08:25→20:53)
[2017-02-03] MEDS: PANTOPRAZOLE 40 MG TABLET PO SCH (08:26)
[2017-02-03] MEDS ORDERED: cefTRIAXone 1,000 MG in SODIUM CHLORIDE 0.9% 100 ML IV SCH (09:00)
--- NOTE | 2017-02-03 14:24 | ECHO Report ---
David Patel Exam Date: 02/03/2017 09:29 Referring Physician: Technologist: danielle Neri ARDMS, RVT Age: 31 Ht (in): 71 Wt (lb): 188 Gender: M Exam Location: [facility] Echo Indications: Chest pain, unspecified, Dizziness and giddiness, Shortness of breath, Pneumonia, Headache, Leukocytosis BP: 101 / 65 HR: 60 Rhythm: Sinus Technical Quality: Technically difficult study IMPRESSIONS Left ventricular ejection fraction is estimated at 50-55%. Trace mitral regurgitation. Trace tricuspid valve regurgitation. Trace pulmonary valve regurgitation. MEASUREMENTS (Male / Female) Normal Values 2D ECHO LV Diastolic Diameter PLAX 5.7 cm 4.2 - 5.9 / 3.9 - 5.3 cm LV Systolic Diameter PLAX 3.9 cm LV Fractional Shortening PLAX 31.2 % IVS Diastolic Thickness 0.9 cm 0.6 - 1.0 / 0.6 - 0.9 cm LVPW Diastolic Thickness 0.9 cm 0.6 - 1.0 / 0.6 - 0.9 cm RV Internal Dim ED PLAX 3.3 cm Aortic Root Diameter 3.0 cm LA Systolic Diameter LX 3.1 cm 3.0 - 4.0 / 2.7 - 3.8 cm DOPPLER TR Peak Velocity 269.0 cm/s TR Peak Gradient 28.9 mmHg FINDINGS Left Ventricle Normal left ventricular cavity size. Normal left ventricular wall thickness. Left ventricular ejection fraction is estimated at 50-55%. Right Ventricle Mildly increased right ventricular size. Right Atrium The right atrium is normal in size. Left Atrium The left atrium is normal in size. Mitral Valve Morphologically normal mitral valve without significant stenosis or prolapse. Trace mitral regurgitation. Aortic Valve Morphologically normal aortic valve without significant sclerosis or stenosis. There is no aortic regurgitation. Tricuspid Valve Morphologically normal tricuspid valve. Trace tricuspid valve regurgitation. Tricuspid regurgitation velocities suggest a PAP of 39 mmHg. Pulmonic Valve Morphologically normal pulmonic valve. Trace pulmonary valve regurgitation. Pericardium Normal pericardium without effusion. Aorta Normal ascending aorta dimension. Eladio Claire (Electronically Signed) Final Date: 03 February 2017 14:22
[2017-02-03] MEDS: GABAPENTIN 300 MG CAPSULE PO SCH ×2 (14:27→20:58)
--- NOTE | 2017-02-03 14:37 | Hospitalist Progress Note ---
Assessment and Plan (1) Leukocytosis Status: Acute Assessment and plan: Resolved Current Visit: Yes (2) Pneumonia Status: Acute Assessment and plan: Continue IV antibiotic is in the meantime reassess the patient tomorrow. Chances I will be discharged tomorrow. And I discussed HIV testing with the patient and he is not willing to have that done. Current Visit: Yes Hospitalist: Subjective Interval history: Patient has been seen interviewed and examined and chart has been reviewed. Admitted to the hospital with bilateral pneumonia. Patient is a fibrotic changes in the lungs. Is concerning to me that his gentleman at the age of 31 reports that he has had another pneumonia just last August. I will see him for HIV testing he states that the he has no reason to want to have HIV testing. I advised him that this recommendation of the CDC that he for the age of 13-64 disease CBC recommendation that she should be offered testing by your physician. He is very reluctant all the tested here he however acknowledges that he would like to discuss that with his primary care physician who will test him. Reportedly was admitted yesterday via ER. Improved on antibiotics. I think he needs at least 1 more day of antibiotics and then find him on alternative antibiotic to take by mouth. Hopefully his blood cultures are negative. Exam - Constitutional Vitals: Period Temp Pulse Resp BP Sys/Ortega Pulse Ox Last 24 Hr 97.1 F-99.0 F 61-89 18-22 101-147/55-88 90-100 General appearance: normal weight, no acute distress - Head Head exam: Present: normocephalic, atraumatic - Eye Eye exam: Present: EOMI Pupils: Present: SRAVANTHI - ENT ENT exam: Present: normal exam - Respiratory Respiratory exam: Present: clear to auscultation bilaterally - Cardiovascular Cardiovascular exam: Present: regular rate and rhythm - GI/Abdominal GI/Abdominal exam: Present: normal bowel sounds, soft - Extremities Exam Extremities exam: Present: full ROM - Neurological Exam Neurological exam: Present: alert, oriented X3, CN II-XII intact - Psychiatric Psychiatric exam: Present: normal affect, normal mood - Skin Skin exam: Present: normal color, warm, dry Results - Labs CBC & BMP: 02/03/17 03:49 02/03/17 03:49 Lab Results: I have reviewed the past 24 hour labs Quality Measures - Stroke Symptom Onset Unknown: No
[2017-02-03] MEDS: SODIUM CHLORIDE 0.9% 1,000 ML IV SCH (15:09)
[2017-02-03] MEDS ORDERED: MIRTAZAPINE 15 MG TABLET PO SCH (21:00)
[2017-02-03] MEDS ORDERED: ARIPiprazole 5 MG TABLET PO SCH (21:00)
[2017-02-04] MEDS: ALBUTEROL/IPRATROPIUM 3 ML NEB RESP TX SCH ×3 (03:15→07:44)
[2017-02-04] MEDS: SODIUM CHLORIDE 0.9% 1,000 ML IV SCH (06:01)
[2017-02-04 07:36] LABS: Calcium 8.7 MG/DL (8.5-10.1); Magnesium 2.3 MG/DL (1.8-2.4); Osmolality,Calculated 275.4 MOS/KG (273-304)
[2017-02-04 07:52] VITALS: BP 108/66
[2017-02-04 08:03] LABS: Basophils # 0.1 10*3/uL (0.0-0.2); Basophils % 0.8 % (0.0-0.8); Eosinophils # 0.2 10*3/uL (0.0-0.87); Eosinophils % 2.5 % (0.00-10.9); Hematocrit 44.1 VOL% (42.0-52.0); Hemoglobin 15.1 GM/DL (14.0-18.0); Immature Granulocytes % 0.5 %; Immature Granulocytes Absolute 0.04 #; Lymphocytes % 22.5 % (21.2-54.2); Mean Corpuscular HGB Conc 34.2 GM/DL (32-36); Mean Corpuscular Hemoglobin 31 PG (27-34); Mean Corpuscular Volume 91.7 FL (87-102); Mean Platelet Volume 10.4 FL (9.6-12.0); Monocytes # 0.7 10*3/uL (0.11-0.8); Monocytes % 8.2 % (1.7-12.7); Neutrophils # 5.7 10*3/uL (1.4-7.4); Neutrophils % 65.5 % (38.7-73.9); Platelet Count 272 T/CUMM (130-400); Red Blood Count 4.81 MC/CUMM (3.8-5.5); Red Cell Distribution Width 14.2 % (9.3-17.3); White Blood Count 8.7 T/CUMM (4-12)
[2017-02-04] MEDS ORDERED: FOLIC ACID 1 MG TABLET PO SCH (09:00)
[2017-02-04] MEDS ORDERED: LEVOFLOXACIN 750 MG TABLET PO SCH (09:00)
[2017-02-04] MEDS: PANTOPRAZOLE 40 MG TABLET PO SCH (09:05)
[2017-02-04] MEDS: GABAPENTIN 300 MG CAPSULE PO SCH (09:05)
[2017-02-04] MEDS ORDERED: cefTRIAXone 1,000 MG in SODIUM CHLORIDE 0.9% 100 ML IV SCH (09:30)
--- NOTE | 2017-02-04 10:14 | Discharge Summary ---
<Osmin Johnson - Last Filed: 02/04/17 10:12> Hospital Course - Hospital Course Hospital Course: Mr. Stewart is a 31-year-old white male with history of psoriasis syndrome, substance abuse, depression, anxiety, migraines, peripheral neuropathy, appendectomy, and cholecystectomy that presented to the ED on 02/02 as a transfer from the [facility] for further evaluation of a fever of 104. Patient also had complaints of cough, fever, chills, night sweats and sore throat. Patient was evaluated at the outside facility and a chest x-ray revealed bilateral infiltrates. CBC performed in the ER revealed a WBC of 13. Patient was admitted to the hospitalist service for further evaluation and treatment. Chest x-ray at our facility revealed interval increase in heart size and development of venous congestion. He also reveals stable bilateral atelectasis and worsening infiltrate in the left mid lung field. Patient was treated with IV antibiotics Zosyn and Rocephin. Patient also received IV fluid hydration, blood cultures were ordered, breathing treatments were also ordered patient was monitored. Patient's condition improved with antibiotic treatment. Patient is stable to be discharged today on p.o. antibiotics. Dr. Johnson will follow with any additional instructions. Diagnosis - Discharge Diagnosis (1) Leukocytosis Status: Acute (2) Pneumonia Status: Acute Discharge Plan - Discharge Data Disposition: Disch To Home/Self Care Condition at Discharge: Stable Discharge Diet: advance to your usual diet Activity: resume usual activities as tolerated Weight Bearing at Discharge: full weight bearing Driving: no restrictions Contact your physician if you experience:: fever over 101, Shortness of breath - Discharge Medications New Levofloxacin Tab [Levaquin Tab] 750 mg PO Q24H #4 tablet Continue Mirtazapine 15 mg PO BEDTIME Folic Acid Tab 1 mg PO QAM ARIPiprazole [Abilify] 5 mg PO BEDTIME Gabapentin Cap/Tab [Neurontin Cap/Tab] 300 mg PO TID - Follow Up or Referral - Forms/Instructions Instructions: Leukocytosis (DC), Pneumonia (DC) Exam - Constitutional Vitals: Period Temp Pulse Resp BP Sys/Ortega Pulse Ox Last 24 Hr 97.3 F-100.5 F 74-117 15-28 108-128/61-76 92-98 General appearance: normal weight - Head Head exam: Present: normocephalic, atraumatic - Eye Eye exam: Present: EOMI Pupils: Present: SRAVANTHI - Respiratory Respiratory exam: Present: clear to auscultation bilaterally - Cardiovascular Cardiovascular exam: Present: regular rate and rhythm - GI/Abdominal GI/Abdominal exam: Present: normal bowel sounds, soft - Extremities Exam Extremities exam: Present: full ROM - Neurological Exam Neurological exam: Present: alert, oriented X3, CN II-XII intact - Psychiatric Psychiatric exam: Present: normal affect, normal mood - Skin Skin exam: Present: normal color, warm, dry Discharge Results Procedures and tests throughout hospitalization: Pending Orders 02/02/17 14:44 Blood Culture Stat Labs on day of discharge: Labs from last 24 hours 02/04/17 02/04/17 05:15 05:15 WBC 8.7 D RBC 4.81 Hgb 15.1 Hct 44.1 MCV 91.7 MCH 31 MCHC 34.2 RDW 14.2 Plt Count 272 MPV 10.4 Neut % (Auto) 65.5 Lymph % (Auto) 22.5 [place] % (Auto) 8.2 Eos % (Auto) 2.5 Baso % (Auto) 0.8 Neut # (Auto) 5.7 Lymph # (Auto) 2.0 [place] # (Auto) 0.7 Eos # (Auto) 0.2 Baso # (Auto) 0.1 Immature Gran % 0.5 Nucleated RBC % 0.0 Immature Gran # 0.04 Nucleated RBCs # 0.00 Sodium 140 Potassium 4.0 Chloride 106 Carbon Dioxide 28 Anion Gap 10.0 BUN 8 Creatinine 0.90 GFR Calculation 133 BUN/Creatinine Ratio 8.00 Glucose 77 Calculated Osmolality 275.4 Calcium 8.7 Magnesium 2.3 Preliminary micro results at discharge 02/02/17 14:44 Blood Culture - Preliminary Blood No growth at 1 day 02/02/17 14:31 Blood Culture - Preliminary Blood No growth at 1 day DS: Provider Date of admission: 02/02/17 16:36 Primary care physician: . No PCP Attending physician on admission: Raymon Khan MD Discharging clinician: Osmin Johnson MD <Bc Espitia - Last Filed: 02/04/17 12:10> Diagnosis - Discharge Diagnosis (1) Pneumonia Status: Acute (2) Leukocytosis Status: Acute
== END 2017-02-04 12:32 | disposition home or self-care (01) | DRG 139 ==
LOC: N.ED 13:53 → SUATTDRO 16:36 → N.EDINP 16:36 → N.2E 19:05
PROVIDERS: ADMIT Family Medicine; ATTEND Internal Medicine Infectious Disease